=== PATIENT | female | born 1965 | race Caucasian/White ===

== ENCOUNTER 2018-02-11 00:26 | Inpatient (IN) | payer OTHER ==
[~2018-02-11] VITALS: Ht 157.5 cm; Wt 117.9 kg
[2018-02-11] VITALS (15 sets, daily range): BP systolic 99–133; BP diastolic 53–86
[~2018-02-11 00:26] MED LIST: ACETAMINOPHEN650 M5 PO; AMBIEN CR12.5 MG PO; AMOXICILLIN 50500 MG PO; AUGMENTIN 875875 MG PO; BISACODYL PO; BISACODYL SUPP10 MG PO; CARISOPRODOL 3350 MG PO; CELEXA 20 MG TA20 MG PO; DOK100 MG PO; DYAZIDE 37.5-21 EACH PO; ESTROVEN ENERG1 EACH PO; HYDROCHLOROTHIA25 M1 PO; HYDROCODONE-APA1 TA1 PO; LEVOTHROID25 MCG PO; LEVOTHYROXIN0.075 MG PO; LISINOPRIL40 MG PO; LOPRESSOR25 PO; MEDROL DOSPAK21 TAB PO; MELATONIN PO; MILK OF MA2400 MG/10 PO; MYLANTA PO; NORCO 10-325 T1 EACH PO; NORCO 5-325 TA1 EACH PO; OXYCODONE HCL15 MG PO; PERCOCET 5-3251 EACH PO; PERCOCET PO; PRINIVIL20 MG PO; PROTONIX40 M1 PO; PROZAC 20 MG20 MG PO; RELAFEN500 MG PO; TOPAMAX100 MG; ULTRAM 50MG TAB50 MG PO
[2018-02-11] MEDS ORDERED: NEURONTIN 300300 M1 PO (00:41)
[2018-02-11] MEDS ORDERED: HAIR, SKIN AND1 EAC1 PO (00:41)
[2018-02-11] MEDS ORDERED: VITAMIN C1000 MG PO (00:42)
[2018-02-11] MEDS ORDERED: ZINC50 M1 PO (00:42)
[2018-02-11] MEDS ORDERED: DICLOFENAC SODI75 MG PO (00:42)
[2018-02-11 01:01] LABS: BE -2.5 mmol/L (-2 to +3); HCO3 22.7 mmol/L (22.0-26.0); PCO2 40.8 mmHg (35.0-45.0); PO2 74.5 mmHg (75.0-100.0); pH 7.363 (7.340-7.450)
[2018-02-11 01:07] LABS: ABSOLUTE BASOPHILS 0.1 thou/uL (0.0-0.2); ABSOLUTE EOSINOPHILS 0.1 thou/uL (0.0-0.7); ABSOLUTE MONOCYTES 0.7 thou/uL (0.0-1.2); EOSINOPHILS 1.6 %; HEMATOCRIT 43.6 % (37.0-47.0); HEMOGLOBIN 14.9 gm/dL (12.0-15.0); MCH 31.1 pg (26.0-34.0); MCHC 34.2 g/dL (28.0-37.0); MCV 90.9 fL (80.0-100.0); MONOCYTES 7.4 %; MPV 9.4 fl. (7.2-11.1); NUCLEATED RBCS 0 /100WBC; PLATELET COUNT* 287 thou/uL (150-400); RBC 4.79 mil/uL (4.20-5.00); RDW-CV 13.6 % (10.5-14.5); WBC 8.9 thou/uL (4.0-11.0)
[2018-02-11 01:15] LABS: ANION GAP 11 mmol/L (7-16); BUN 18 mg/dL (7-18); CALCIUM 8.2 mg/dL (8.5-10.1); CHLORIDE 106 mmol/L (98-107); CO2 25 mmol/L (21-32); CREATININE 0.9 mg/dL (0.6-1.3); GLUCOSE 128 mg/dL (70-99); POTASSIUM 3.9 mmol/L (3.5-5.1); SODIUM 142 mmol/L (136-145)
[2018-02-11 01:20] LABS: URINE BILIRUBIN NEGATIVE (Negative); URINE BLOOD TRACE (Negative); URINE CLARITY CLEAR; URINE COLOR YELLOW; URINE GLUCOSE-RANDOM NEGATIVE (Negative); URINE KETONES TRACE (Negative); URINE LEUKOCYTES-REFLEX NEGATIVE (Negative); URINE NITRITE-REFLEX NEGATIVE (Negative); URINE PROTEIN NEGATIVE (Negative); URINE UROBILINOGEN 0.2 E.U./dl (0.2-1.0)
[2018-02-11 01:20] LABS: ALCOHOL 89 mg/dL (<10); SALICYLATE 3.7 mg/dL (2.8-20.0)
[2018-02-11 01:21] LABS: ACETAMINOPHEN < 2 ug/mL (10-30)
[2018-02-11 01:22] LABS: ALBUMIN 3.6 g/dL (3.4-5.0); ALKALINE PHOSPHATASE 96 U/L (46-116); SGOT 17 U/L (15-37); SGPT 35 U/L (30-65); TOTAL BILIRUBIN 0.2 mg/dL (<0.1-1.0); TOTAL PROTEIN 7.6 g/dL (6.4-8.2); TROPONIN-I LEVEL <0.06 ng/mL (<0.06)
[2018-02-11 01:28] LABS: AMP/METHAMP Negative (Negative); BARBITURATES Negative (Negative); BENZODIAZEPINES Negative (Negative); COCAINE Negative (Negative); METHADONE Negative (Negative); OPIATES Negative (Negative); PCP Negative (Negative); THC Negative (Negative)
--- NOTE | 2018-02-11 04:03 | NUR ---
PT ADMITTED TO ICU ROOM #3 AT 0310. PT DROWSEY AND LETHARGIC, OPENS EYES TO VOICE, FOLLOWS COMMANDS. PT ANSWERS QUESTIONS APROPRIATELY. ONE TO ONE SITTER AT BEDSIDE FOR SUICIDE PRECAUTIONS.
--- NOTE | 2018-02-11 06:35 | NUR ---
PT EXTREMELY RESTLESS DURING SHIFT. PT REPORTED CATHETER WAS HURTING ON SEVERAL OCCASIONS. CASEY CATHETER DISCONTINUED AT 0600. PT UP TO BEDSIDE COMMODE WITH ASSIST X1. PT STILL SLIGHTLY RESTLESS. SALINE LOCK IN LEFT HAND DISLODGED. RESTARTED 20 GUAGE SALINE LOCK IN LEFT ANTICUBITAL. PT VISUALLY HALLUCINATING, SEEING PERSONS NOT PRESENT. ONE TO ONE MAINTAINED FOR SUICIDE PRECAUTIONS. PT MAINTAINING O2 SAT > 94% ON ROOM AIR. HEART RATE 90 - 100. BLOOD PRESSURE WITHIN NORMAL LIMITS, WILL CONTINUE TO MONITOR CLOSELY.
--- NOTE | 2018-02-11 08:30 | NUR ---
RECEIVED REPORT FROM SLITTING MACHINE OPERATOR HELPER NURSE ANH Boateng PATIENT ANSWERS ALL ORIENTATION QUESTIONS APPROPRIATELY BUT IS VERY LETHARGIC AND DROWSY. ASSESSMENT CHARTED. PATIENT GRANDSON AT BEDSIDE AND DAUGHTER VISTED THIS AM. ALL VITALS WNL. PATIENT REPORTS NO PAIN, NAUSEA OR SHORTNESS OF AIR. GOALS ARE SAFTEY, REORIENTATION WHEN NEEDED, AND MONITOR CARDIAC RHYTHM AND VITALS IN ICU FOR 24 HOURS. MEDICATION RECONCILIATION TECHNICIAN IN PLACE, BED IN LOWEST POSITION, CALL LIGHT IN REACH, FALL PREACUTIONS IN PLACE, SITTER AT BEDSIDE. WILL CONTINUE TO MONITOR.
--- NOTE | 2018-02-11 13:41 | EKG ---
[place] [address] ELECTROCARDIOGRAM REPORT Name: KYA MARTINEZ Room: [address] IN ..#: [id number] Admission: 02/11/18 Attend Phys: Inez Torres MD Discharge: Date of : 65 Report #: [id number] THIS REPORT FOR: //name// [facility] ED Test Date: 2018-02-11 Test Time: 00:37:27 Pat Name: KYA MARTINEZ Department: Room: Gender: F Engraver Ornamental Design: ABRAN Bright : 1965 Requested By: Luis Alberto Kumar Order Number: [id number] MD: Deonte Servin Measurements Intervals [place] Rate: 98 P: 63 GA: 154 QRS: 97 QRSD: 99 T: 30 QT: 357 QTc: 456 Interpretive Statements Sinus rhythm Borderline right axis deviation Low voltage, precordial leads Electronically Signed On 02-11-2018 13:41:04 CDT by Deonte Servin [email or web address] <ELECTRONICALLY SIGNED> By: Deonte Servin MD, [facility] 02/11/18 1341 0037 0037 Deonte Servin MD, FACC /EPI
--- NOTE | 2018-02-11 18:41 | NUR ---
PATIENT HAS HAD MANY VISITORS TODAY. TEARFUL AT TIMES, SHE KNOWS WHAT SHE DID BUT DOES NOT SHOW REMORSE FOR IT. HAS HAD A CRYING EPISODE TODAY BECAUSE SHE THOUGHT HER DOGS WERENT BEING TAKEN CARE OF. DAUGHTER TOOK BELONGINGS HOME AND REASSURED PATIENT THAT SHE WOULD TAKE CARE OF HER DOG. PATIENT IS MUCH MORE AWAKE THIS EVENING, TELE PSYCH CONSULT SHOULD BE DONE TOMORROW. BED IN LOWEST POSITION, CALL LIGHT IN REACH, TONGUE TRIMMER IN PLACE. WILL CONTINUE TO MONITOR.
[2018-02-12] VITALS (7 sets, daily range): BP systolic 121–152; BP diastolic 67–89
--- NOTE | 2018-02-12 03:38 | NUR ---
PT. C/O "HEART HURTING". EKG OBTAINED, UNREMARKABLE.
[2018-02-12 04:05] LABS: HEMATOCRIT 40.1 % (37.0-47.0); HEMOGLOBIN 13.5 gm/dL (12.0-15.0); MCH 30.7 pg (26.0-34.0); MCHC 33.6 g/dL (28.0-37.0); MCV 91.4 fL (80.0-100.0); MPV 9.3 fl. (7.2-11.1); RBC 4.38 mil/uL (4.20-5.00); RDW-CV 13.4 % (10.5-14.5); WBC 8.5 thou/uL (4.0-11.0)
[2018-02-12 04:22] LABS: CALCIUM 8.2 mg/dL (8.5-10.1); CREATININE 0.9 mg/dL (0.6-1.3); POTASSIUM 3.8 mmol/L (3.5-5.1)
--- NOTE | 2018-02-12 05:08 | NUR ---
PT. PROGRESSING TOWARDS GOALS. HAS C/O PAIN THROUGHOUT SHIFT, IBUPROFEN AND TYLENOL GIVEN PER PRN ORDER. PT. HAS FREQUENTLY ASKED WHEN SHE COULD GO HOME. SITTER HAS REMAINED AT BEDSIDE THROUGHOUT SHIFT. ROOM AIR. HAS SLEPT WELL THROUGHOUT SHIFT. WILL CONTINUE TO MONITOR.
--- NOTE | 2018-02-12 11:20 | NUR ---
Nutrition: Consult received for "weight change." Per [employer], pt usually weighs around 260# x several years. Per ICU rounds, pt is eating well, wants to go home. BG 106, albumin 3.6. Admitted for SI, ETOH, OD. No nutrition interventions needed at this time.
--- NOTE | 2018-02-12 11:37 | NUR ---
CM SPOKE TO THE PATIENT TO DISCUSS HOME SITUATION, DISCHARGE PLANNING, AND TO INFORM OF THE ROLE OF CM. PATIENT ALERT AND ORIENTED. PATIENT WORKS AND DRIVES. PATIENT RESIDES AT HOME ALONE AND WAS RECENTLY . PATIENT INFORMS THAT PRIOR TO HER ADMISSION SHE WAS 'DRINKING WINE AND FEELING VERY ALONE', SO SHE 'TOOK A HANDFUL OF PILLS'. PATIENT STATES THAT SHE DOESN'T REMEMBER ANYTHING AFTER THAT. PATIENT ALSO INFORMS THAT SHE HAS NO HX OF INPATIENT PSYCH. CM WILL REMAIN AVAILABLE TO ASSIST AND FOLLOW NEEDED.
--- NOTE | 2018-02-12 11:41 | NUR ---
ICU ROUNDING: CM SPOKE TO THE RN IN-CHARGE OF THE PATIENT AND SHE INFORMS THAT PATIENT IS NOW MED-SURG STATUS AND SHOULD BE MOVING OFF THE ICU UNIT TODAY. PATIENT TO BE SEEN BY TELE PSYCH TODAY. CM WILL REMAIN AVAILABLE TO ASSIST AND FOLLOW NEEDED.
--- NOTE | 2018-02-12 11:58 | EKG ---
[place] [address] ELECTROCARDIOGRAM REPORT Name: KYA MARTINEZ Room: [address] ADM IN M.R.#: [id number] Admission: 02/11/18 Attend Phys: Inez Torres MD Discharge: Date of : 65 Report #: [id number] THIS REPORT FOR: //name// [facility] Test Date: 2018-02-12 Test Time: 03:29:47 Pat Name: KYA MARTINEZ Department: Room: [address] Gender: F Screw Cutter: FANNY : 1965 Requested By: Inez Torres Order Number: [id number] Reading MD: Deonte Servin Measurements Intervals [place] Rate: 70 P: 19 NM: 209 QRS: 83 QRSD: 98 T: 34 QT: 408 QTc: 441 Interpretive Statements Sinus rhythm Borderline prolonged NM interval Anterior infarct, old Compared to ECG 02/11/2018 00:37:27 Myocardial infarct finding now present rate has slowed Electronically Signed On 02-12-2018 11:58:31 CDT by Deonte Servin [email or web address] <ELECTRONICALLY SIGNED> By: Deonte Servin MD, [facility] 02/12/18 1158 0329 0329 Deonte Servin MD, [facility] /EPI
--- NOTE | 2018-02-12 11:59 | NUR ---
ASSUMED PT CARE 0730. PT A/O X'4. TRACING SR. VSS. AFEBRILE. TELE [facility] PHYSICIAN CALLED AND SPOKE TO PT. PT CHANGED TO M/S STATUS. WILL CONTINUE PLAN OF CARE.
--- NOTE | 2018-02-12 16:52 | NUR ---
RECEIVED PSYCHIATRIST NOTES VIA FAXED. PLACED IN CHART UNDER PROGRESS NOTES.
--- NOTE | 2018-02-12 16:53 | NUR ---
ABOUT 1600 PT C/O OF CHEST PAIN 04/06. RADIATING TO BOTH ARMS. PT DESCRIBED PAIN SHARP AND BURNING. PT REPORTED ARMS FELT HEAVY. TRACING SR WITH HR IN 70'S. PT 95% ON 10 L NC. VSS AND CHARTED. EKG OBTAINED. NOTIFIED. RECEIVED ORDER FOR 1 TROPONIN. RETAIL STORE CLERK CAME TO SEE PT. NO ADDITIONAL ORDERS RECIEVED. PER CARDIOLOGY WATCH SYMPTOMS.
--- NOTE | 2018-02-12 19:30 | NUR ---
PATIENT ARRIVED TO UNIT BY WHEELCHAIR IN TRANSFER FRON ICU TO BED 115 IN STABLE CONDITION. ROOM PREPARED PER PROTOCOL FOR SI PATIENT PRIOR TO ARRIVAL. MOTHER OF PATIENT PRESENT FOR VISIT. MOTHERS BELONGINGS IN LOCK DRAWER PER PRTOCOL. PATIENT ALERT AND ORIENTED X 4, PLEASANT AND CONVERSATIONAL. SITTER WITH PATIENT. CONTINUE TO MONITOR.
--- NOTE | 2018-02-13 04:43 | NUR ---
PATIENT HAS REMAINED ALERT AND ORIENTED X 4 THROUGHOUT THE SHIFT AND RESTING AT INTERVALS ON HOURLY ROUNDS. UP WITH SBA. 1:1 CONTINUES. PATIENT HAS BEEN PLEASANT. READING A BOOK. TEARY WHEN FIRST ARRIVED AND DISCUSSING SITUATION. VITAL SIGNS STABLE. CONTINUE TO MONITOR.
[2018-02-13 08:45] VITALS: BP 129/82
--- NOTE | 2018-02-13 10:23 | NUR ---
SW received order for pt to dc to inpt psych. SW called referral options: [facility] [phone]...no adult beds available [facility] [phone]...full [facility] pager [phone]...awaiting response [facility] [phone] and faxed referral to fax [phone]...pending review [facility] [phone]...at limit, unable to accept today [facility] [phone] and faxed referral to fax [phone]...referral being reviewed. SW awaiting response from referral sources and SW will continue to follow to assist with dc planning/placement.
[2018-02-13 15:00] VITALS: BP 113/70
--- NOTE | 2018-02-13 16:45 | NUR ---
PATIENT ALERT AND ORIENTED X 4. VITAL SIGNS STABLE ON ROOM AIR. UP AD IMAN IN ROOM. ONE TO ONE SITTER AT BEDSIDE. NO IV ACCESS. DENIES NAUSEA. MIGRAINE PAIN BEING MANAGED WITH PO MEDICATION. PATIENT IS BEING TRANSFERRED TO FACILITY THIS EVENING. HOURLY ROUNDS MAINTAINED THROUGHOUT THE SHIFT. CALL LIGHT WITHIN REACH. NURSING WILL CONTINUE TO MONITOR.
[2018-02-13 16:47] VITALS: BP 129/82
[2018-02-13 17:16] VITALS: BP 121/77
--- NOTE | 2018-02-13 17:47 | NUR ---
PATIENT LEFT UNIT AND TRANSFERRED TO FACILITY AT 1745. ALERT AND ORIENTED X 4. VITAL SIGNS STABLE ON ROOM AIR. UP INDEPENDENTLY. ONE TO ONE SITTER HAS BEEN AT BEDSIDE ALL DAY. NO IV ACCESS. TRANSFER PACKET GIVEN TO EMS. LEFT WITH ALL BELONGINGS WITH EMS VIA AMBULANCE.
== END 2018-02-13 17:45 | DRG 917 ==
LOC: M.ERS 00:26 → M.TBA-ER 01:52 → M.ICU 01:52 → M.ORTHSURG 02-12 19:06
PROVIDERS: Emergency Medicine; Internal Medicine; ADMIT Internal Medicine
DX: T42.6X2A Poisoning by other antiepileptic and sedative-hypnotic drugs, intentional self-harm, initial encounter (principal); G92 Toxic encephalopathy; I10 Essential (primary) hypertension; E78.5 Hyperlipidemia, unspecified; F17.210 Nicotine dependence, cigarettes, uncomplicated; G43.909 Migraine, unspecified, not intractable, without status migrainosus; F32.9 Major depressive disorder, single episode, unspecified; E03.9 Hypothyroidism, unspecified; Y92.098 Other place in other non-institutional residence as the place of occurrence of the external cause; Z88.2 Allergy status to sulfonamides; Z98.890 Other specified postprocedural states; Z79.899 Other long term (current) drug therapy

== ENCOUNTER 2021-01-26 20:48 | Observation (INO) | payer OTHER ==
[~2021-01-26] VITALS: Ht 160 cm; Wt 123.0 kg
[~2021-01-26 20:48] MED LIST changes: +DICLOFENAC SODI75 MG PO; -DYAZIDE 37.5-21 EACH PO; +HAIR, SKIN AND1 EAC1 PO; -LEVOTHYROXIN0.075 MG PO; +MAXZIDE-25 MG1 EACH PO; +NEURONTIN 300300 M1 PO; +SYNTHROID75 MC1 PO; +VITAMIN C1000 MG PO; +ZINC50 M1 PO
[2021-01-26 20:57] VITALS: BP 135/80
[2021-01-26] MEDS ORDERED: ELIQUIS5 MG PO (21:02)
[2021-01-26] MEDS ORDERED: TOPROL XL25 MG PO (21:03)
[2021-01-26 21:16] LABS: ABSOLUTE BASOPHILS 0.1 thou/uL (0.0-0.2); ABSOLUTE EOSINOPHILS 0.1 thou/uL (0.0-0.7); ABSOLUTE LYMPHOCYTES 3.5 thou/uL (0.8-5.3); ABSOLUTE MONOCYTES 1.1 thou/uL (0.0-1.2); ABSOLUTE NEUTROPHILS 5.1 thou/uL (1.6-8.1); EOSINOPHILS 1.5 %; HEMATOCRIT 44.3 % (37.0-47.0); HEMOGLOBIN 14.9 gm/dL (12.0-15.0); LYMPHOCYTES 35.5 %; MCH 30.2 pg (26.0-34.0); MCHC 33.5 g/dL (28.0-37.0); MCV 90.1 fL (80.0-100.0); MONOCYTES 10.7 %; MPV 8.6 fl. (7.2-11.1); NUCLEATED RBCS 0 /100WBC; PLATELET COUNT* 282 thou/uL (150-400); POLYS 51.3 %; RBC 4.92 mil/uL (4.20-5.00); RDW-CV 13.9 % (10.5-14.5); WBC 9.9 thou/uL (4.0-11.0)
[2021-01-26 21:32] LABS: CALCIUM 8.8 mg/dL (8.5-10.1); POTASSIUM 3.9 mmol/L (3.5-5.1)
[2021-01-26 21:35] LABS: APTT 23.9 Seconds (25.0-31.3); PROTIME 10.6 Seconds (9.20-11.50)
[2021-01-26 21:43] LABS: ALBUMIN 3.5 g/dL (3.4-5.0); TOTAL BILIRUBIN 0.3 mg/dL (<0.1-1.0); TOTAL PROTEIN 7.6 g/dL (6.4-8.2)
[2021-01-27] VITALS (7 sets, daily range): BP systolic 97–110; BP diastolic 62–82
--- NOTE | 2021-01-27 04:55 | NUR ---
RECIEVED REPORT FROM THELMA THAO. PT TRANSFERRED TO 225. PT A&OX4. VSS. AUTO MOTOR MECHANIC IN PLACE. ADMISSION HISTORY & PHYSICAL ASSESSMENT COMPLETED AND CHARTED. PT ON RA. PT TRACING AFIB ON TELE-ONGOING CARDIZEM DRIP. ORIENTED TO ROOM & CALL LIGHT.
--- NOTE | 2021-01-27 09:51 | EKG ---
[place] [address] ELECTROCARDIOGRAM REPORT Name: KYA MARTINEZ Room: [address]#: [id number] Admission: 01/27/21 Attend Phys: Jake Abel Discharge: Date of : 65 Date of Service: 01/26/212053 Report #: [id number] THIS REPORT FOR: //name// [facility] ED Test Date: 2021-01-26 Test Time: 20:54:46 Pat Name: KYA MARTINEZ Department: Room: [facility] Gender: F Candlemaker: EDWAR : 1965 Requested By: Lelo Lisa Order Number: [id number] MD: Enrike Rodriguez Measurements Intervals [place] Rate: 127 P: [place]: QRS: 111 QRSD: 96 T: 21 QT: 328 QTc: 477 Interpretive Statements Atrial fibrillation Right axis deviation Low voltage, extremity and precordial leads Abnormal R-wave progression, late transition Minimal ST depression, inferior leads Compared to ECG 02/12/2018 03:29:47 Right-axis deviation now present Low QRS voltage now present ST (T wave) deviation now present Sinus rhythm no longer present Myocardial infarct finding no longer present Electronically Signed On 01-27-2021 9:51:10 CDT by Enrike Rodriguez [email or web address] <ELECTRONICALLY SIGNED> By: Tracey Rodriguez MD, [facility] 01/27/21950 53 53 Tracey Rodriguez MD, [facility] /EPI
--- NOTE | 2021-01-27 10:08 | NUR ---
0150 ASSUMED CARE OF PATIENT. PLEASE SEE DOCUMENTED ASSESSMENT. PT IS IN CONTROLLED ATRIAL FIB. PT IS CONCERNED BECAUSE SHE IS OUT OF NETWORK.
[2021-01-27] MEDS ORDERED: CARDIZEM CD120 MG PO (10:57)
--- NOTE | 2021-01-27 13:49 | NUR ---
1310 DISCHARGED AMBULATORY
== END 2021-01-27 13:15 | disposition home or self-care (01) ==
LOC: M.ERS 20:48 → M.2W 01-27 00:15 → M.TBA-ER 01-27 00:15 → M.2W 01-27 00:29
PROVIDERS: Personal Emergency Response Attendant; ADMIT Internal Medicine; ATTEND Internal Medicine
DX: I48.20 Chronic atrial fibrillation, unspecified (principal); Z20.822 Contact with and (suspected) exposure to COVID-19; E66.01 Morbid (severe) obesity due to excess calories; I10 Essential (primary) hypertension; E03.9 Hypothyroidism, unspecified; G43.909 Migraine, unspecified, not intractable, without status migrainosus; F32.9 Major depressive disorder, single episode, unspecified; L40.9 Psoriasis, unspecified; F17.210 Nicotine dependence, cigarettes, uncomplicated; Z88.2 Allergy status to sulfonamides; Z79.899 Other long term (current) drug therapy; Z68.42 Body mass index [BMI] 45.0-49.9, adult

== ENCOUNTER 2021-03-14 14:49 | Inpatient (IN) | payer OTHER ==
[~2021-03-14] VITALS: Ht 160 cm; Wt 127.6 kg
[~2021-03-14 14:49] MED LIST changes: +CARDIZEM CD120 MG PO; +ELIQUIS5 MG PO; +TOPROL XL25 MG PO
[2021-03-14 15:02] VITALS: BP 114/79
[2021-03-14] MEDS ORDERED: DESYREL150 MG PO (15:07)
[2021-03-14] MEDS ORDERED: LOPRESSOR50 MG PO (15:07)
[2021-03-14 15:37] LABS: ABSOLUTE BASOPHILS 0.1 thou/uL (0.0-0.2); ABSOLUTE EOSINOPHILS 0.1 thou/uL (0.0-0.7); ABSOLUTE LYMPHOCYTES 2.3 thou/uL (0.8-5.3); ABSOLUTE MONOCYTES 0.7 thou/uL (0.0-1.2); ABSOLUTE NEUTROPHILS 7.1 thou/uL (1.6-8.1); BASOPHILS 0.8 %; EOSINOPHILS 0.8 %; HEMATOCRIT 44.5 % (37.0-47.0); LYMPHOCYTES 22.6 %; MCH 30.5 pg (26.0-34.0); MCHC 33.7 g/dL (28.0-37.0); MCV 90.5 fL (80.0-100.0); MONOCYTES 6.4 %; MPV 9.1 fl. (7.2-11.1); NUCLEATED RBCS 0 /100WBC; PLATELET COUNT* 292 thou/uL (150-400); POLYS 69.4 %; RBC 4.92 mil/uL (4.20-5.00); RDW-CV 13.9 % (10.5-14.5); WBC 10.3 thou/uL (4.0-11.0)
[2021-03-14 15:50] LABS: ANION GAP 6 mmol/L (7-16); BUN 16 mg/dL (7-18); CALCIUM 8.4 mg/dL (8.5-10.1); CHLORIDE 107 mmol/L (98-107); CO2 30 mmol/L (21-32); CREATININE 0.9 mg/dL (0.6-1.3); GLUCOSE 118 mg/dL (70-99); SODIUM 143 mmol/L (136-145)
[2021-03-14 15:53] LABS: ALBUMIN 3.5 g/dL (3.4-5.0); ALKALINE PHOSPHATASE < 10 U/L (46-116); SGOT 9 U/L (15-37); SGPT 16 U/L (30-65); TOTAL BILIRUBIN < 0.1 mg/dL (<0.1-1.0)
[2021-03-14 15:56] LABS: TOTAL PROTEIN < 2.0 g/dL (6.4-8.2)
[2021-03-14 16:23] LABS: MAGNESIUM 2.1 mg/dL (1.8-2.4)
[2021-03-14 19:55] VITALS: BP 127/77
[2021-03-14 20:00] VITALS: BP 128/77
[2021-03-15] VITALS (14 sets, daily range): BP systolic 90–122; BP diastolic 50–70
[2021-03-15 05:53] LABS: HEMATOCRIT 39.3 % (37.0-47.0); HEMOGLOBIN 13.2 gm/dL (12.0-15.0); MCH 30.4 pg (26.0-34.0); MCHC 33.5 g/dL (28.0-37.0); MCV 90.7 fL (80.0-100.0); MPV 9.3 fl. (7.2-11.1); RBC 4.33 mil/uL (4.20-5.00); RDW-CV 13.8 % (10.5-14.5); WBC 8.6 thou/uL (4.0-11.0)
[2021-03-15 06:00] LABS: CALCIUM 8.1 mg/dL (8.5-10.1); CREATININE 0.8 mg/dL (0.6-1.3); POTASSIUM 3.7 mmol/L (3.5-5.1)
--- NOTE | 2021-03-15 11:58 | EKG ---
[place] [address] ELECTROCARDIOGRAM REPORT Name: KYA MARTINEZ Room: [address] ADM IN ..#: [id number] Admission: 03/15/21 Attend Phys: Inez Torres, Discharge: Date of : 65 Date of Service: 03/14/21 [facility] [place][note 2] Report #: [id number] THIS REPORT FOR: //name// [facility] ED Test Date: 2021-03-14 Test Time: 15:00:54 Pat Name: KYA MARTINEZ Department: Room: [facility] Gender: F Habilitation Worker: TDS : 1965 Requested By: Iveth Hassan Order Number: [id number] MD: Deonte Servin Measurements Intervals [place] Rate: 94 P: DC: QRS: 78 QRSD: 110 T: 38 QT: 338 QTc: 423 Interpretive Statements Atrial fibrillation Anteroseptal infarct, age indeterminate Compared to ECG 01/26/2021 20:54:46 Right-axis deviation no longer present ST (T wave) deviation no longer present Electronically Signed On 03-15-2021 11:58:42 CDT by Deonte Servin [email or web address] <ELECTRONICALLY SIGNED> By: Deonte Servin MD, [facility] 03/15/21 1158 1500 1500 Deonte Servin MD, [facility] /EPI
--- NOTE | 2021-03-15 14:47 | EKG ---
[place] [address] ELECTROCARDIOGRAM REPORT Name: KYA MARTINEZ Room: [address] ADM IN M.R.#: [id number] Admission: 03/15/21 Attend Phys: Inez Torres, Discharge: Date of : 65 Date of Service: 03/15/21 0336 Report #: [id number] THIS REPORT FOR: //name// [facility] Test Date: 2021-03-15 Test Time: 03:36:20 Pat Name: KYA MARTINEZ Department: Room: [address] Gender: F Production Service Manager: ADONIS : 1965 Requested By: Inez Torres Order Number: [id number] Reading MD: Deonte Servin Measurements Intervals [place] Rate: 99 P: [place]: QRS: 83 QRSD: 87 T: 32 QT: 357 QTc: 459 Interpretive Statements Atrial fibrillation Low voltage, extremity and precordial leads Consider anterior infarct Compared to ECG 03/14/2021 15:00:54 Myocardial infarct finding still present Electronically Signed On 03-15-2021 14:47:18 CDT by Deonte Servin [email or web address] <ELECTRONICALLY SIGNED> By: Deonte Servin MD, [facility] 03/15/21 1447 0336 0336 Deonte Servin MD, [facility] /EPI
--- NOTE | 2021-03-15 16:39 | CON ---
[address] [address] CONSULTATION Name: KYA MARTINEZ Gary Room: [address] IN M.R.#: [id number] Admission: 03/15/21 Attend Phys: Inez Torres MD Discharge: Date of : 65 Report #: [id number] THIS REPORT FOR: cc: Varsha Maurer MD, Veronica A. MD Blick, David R. MD [facility] ~ DOC #: [id number] cc: MD Deonte Fraga MD [facility] DATE OF CONSULTATION: 03/15/2021 CARDIOLOGY CONSULTATION HISTORY OF PRESENT ILLNESS: The patient is a 55-year-old single white female who I was asked to see in the hospital after she is noted to be in atrial fibrillation. The patient states in August, she was diagnosed with COVID-19. She eventually recovered. However, in November, she was admitted to [facility] with atrial fibrillation. She was placed on Eliquis and metoprolol. She apparently did see a commercial loan analyst. She did not require cardioversion. She was scheduled to undergo bariatric surgery as part of preoperative evaluation. She apparently had a stress test at [facility] several weeks ago that showed no significant ischemia. The patient was actually admitted here to [facility] with atrial fibrillation. She converted spontaneously back to sinus rhythm. She was started on diltiazem and discharged. She did well until 3 days ago she went back into the irregular heartbeat. She felt fatigued and somewhat short of breath. She finally came to the emergency room here at [facility] last night and was noted to be in atrial fibrillation. Cardiology consultation requested. She denied any chest pain, fever, swollen feet. She denied any lightheadedness or syncope. She has had no recent bleeding problems. She did run out of her diltiazem 3 days ago. CURRENT MEDICATIONS: Include metoprolol, Eliquis, lisinopril, Synthroid, trazodone, Celexa. PAST SURGICAL HISTORY: She has had previous cholecystectomy, hernia repair, hypertension. ALLERGIES: SHE HAS AN ALLERGY TO SULFA DRUGS. FAMILY HISTORY: Father of a heart attack. SOCIAL HISTORY: She is , lives in [place], [place]. 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 Quit smoking 2 years ago. Rarely drinks alcohol. She used to drink up to 6 pack of soda a day with caffeine, but now drinks only 1 [place] [address] CONSULTATION Name: KYA MARTINEZ Room: [address]#: [id number] Admission: 03/15/21 Attend Phys: Inez Torres MD Discharge: Date of : 65 Report #: [id number] 2 a day. No illicit drug use. REVIEW OF SYSTEMS: She is overweight being 5 feet 2 and 260 pounds. She apparently had a sleep study in the past, does not know the results. No history of stroke, asthma, liver disease, kidney disease, cancer, psychiatric illness, chronic skin condition. PHYSICAL EXAMINATION: GENERAL: Revealed a middle-aged female, appeared in no distress. VITAL SIGNS: Blood pressure 120/70, pulse is 80 and irregular. She was afebrile. HEENT: She was anicteric. Conjunctivae pink. Mucous membranes moist. NECK: Neck veins difficult to assess due to obesity. No carotid bruits noted. Neck supple. CHEST: Clear to auscultation. HEART: Irregular rhythm. No significant murmur. ABDOMEN: Obese. EXTREMITIES: No pitting edema. Dorsalis pedis pulse 2+ bilaterally. SKIN: Cool and dry. NEUROLOGIC: Nonfocal. LYMPHATIC: No adenopathy. MUSCULOSKELETAL: No joint effusion. LABORATORY DATA: Her ECG on admission yesterday showed atrial fibrillation with a controlled ventricular response rate. There is poor R-wave progression. Her workup in the emergency room last night, she had a portable chest x-ray that showed normal heart size with clear lung reyes. Her lab work, sodium 143, creatinine 0.8. Her BNP was 2391. TSH 1.2. T4 of 0.8. Her white blood cell count 8.6, hemoglobin 13.2. Her COVID antigen stat test was negative. IMPRESSION AND RECOMMENDATIONS: 1. Paroxysmal atrial fibrillation. The patient is anticoagulated with Eliquis. I would recommend cardioversion and switching from metoprolol to sotalol. 2. Hypertension. The patient has been on beta nina and ACACIA inhibitor. 3. Morbid obesity. The patient is scheduled for bariatric surgery on April 04. 4. Previous tobacco abuse. The patient quit smoking 2 years ago. Deonte Servin MD [facility] [address] [address] CONSULTATION Name: KYA MARTINEZ Room: [address] [facility] IN [place].Subha.#: [id number] Admission: 03/15/21 Attend Phys: Inez Torres MD Discharge: Date of : 65 Report #: [id number] <ELECTRONICALLY SIGNED> By: Deonte Servin MD, [facility] 03/15/21 1639 0740 [id number] Servin MD, FAC /nt
[2021-03-16] VITALS: BP 100/52
[2021-03-16 03:39] LABS: HEMATOCRIT 37.1 % (37.0-47.0); HEMOGLOBIN 12.3 gm/dL (12.0-15.0); MCH 30.3 pg (26.0-34.0); MCHC 33.2 g/dL (28.0-37.0); MCV 91.4 fL (80.0-100.0); MPV 9.2 fl. (7.2-11.1); RBC 4.06 mil/uL (4.20-5.00); RDW-CV 14.2 % (10.5-14.5); WBC 7.9 thou/uL (4.0-11.0)
[2021-03-16 03:44] VITALS: BP 108/64
[2021-03-16 03:53] LABS: CALCIUM 8.4 mg/dL (8.5-10.1); CREATININE 0.9 mg/dL (0.6-1.3); POTASSIUM 4.3 mmol/L (3.5-5.1)
[2021-03-16 08:00] VITALS: BP 106/64
[2021-03-16 13:43] VITALS: BP 114/66
[2021-03-16 16:37] VITALS: BP 106/51
[2021-03-16 20:00] VITALS: BP 120/60
[2021-03-17 00:25] VITALS: BP 118/46
[2021-03-17 04:10] VITALS: BP 106/57
[2021-03-17 04:10] LABS: HEMATOCRIT 35.7 % (37.0-47.0); MCH 30.3 pg (26.0-34.0); MCHC 33.7 g/dL (28.0-37.0); MCV 89.9 fL (80.0-100.0); MPV 9.3 fl. (7.2-11.1); RBC 3.97 mil/uL (4.20-5.00); RDW-CV 14.1 % (10.5-14.5)
[2021-03-17 04:21] LABS: CALCIUM 8.3 mg/dL (8.5-10.1); CREATININE 0.8 mg/dL (0.6-1.3); POTASSIUM 3.9 mmol/L (3.5-5.1)
[2021-03-17] MEDS ORDERED: SORINE 80 MG TA80 M1 PO (12:13)
[2021-03-17 12:50] VITALS: BP 106/57
[2021-03-17 13:00] VITALS: BP 111/76
--- NOTE | 2021-03-18 12:45 | CARD ---
[address] [address] CARDIAC CATH REPORT Name: KYA MARTINEZ Room: [address]#: [id number] Admission: 03/15/21 Attend Phys: Inez Torres MD Discharge: 03/17/21 Date of : 65 Report #: [id number] THIS REPORT FOR: cc: Varsha Maurer MD, Veronica A. MD Blick, David R. MD [facility] ~ DOC #: [id number] cc: MD Deonte Fraga MD [facility] DATE OF SERVICE: 03/14/2021 TITLE OF PROCEDURE: Direct current cardioversion of atrial fibrillation. INDICATIONS: Cardioversion was requested in this patient with a history of persistent atrial fibrillation. PROCEDURE: The patient had been taking Eliquis chronically. The patient presented with atrial fibrillation for approximately 72 hours duration. It was decided to proceed with direct current cardioversion. The indication, alternatives and risk of the procedure were discussed with the patient. She agreed to proceed. DESCRIPTION OF PROCEDURE: The patient was brought to the cardiac catheterization lab in a fasting state. Hands-free cardioversion patches were applied in anterior and posterior location. Moderate sedation was accomplished by administration of 5 mg of Versed and 50 mcg of fentanyl intravenously in divided doses. After achieving moderate sedation, cardioversion was attempted by applying 200 joules of direct current energy. The patient converted to a normal sinus rhythm. The patient tolerated the procedure well and was transferred back to her monitored bed in stable condition. RESULTS: Successful direct current cardioversion of atrial fibrillation to normal sinus rhythm. Deonte Servin MD [facility]/ALMA <ELECTRONICALLY SIGNED> By: Deonte Servin MD, [facility] 03/18/21 1245 1526 Dbrianna Servin MD, [facility] /nt
== END 2021-03-17 13:00 | disposition home or self-care (01) | DRG 309 ==
LOC: M.ERS 14:49 → M.TBA-ER 17:48 → M.2W 20:15
PROVIDERS: Family Medicine; Physician Assistant; ADMIT Internal Medicine; ATTEND Internal Medicine
PROC: 5A2204Z Restoration of Cardiac Rhythm, Single (ICD-10-PCS; principal; 2021-03-15)
DX: I48.20 Chronic atrial fibrillation, unspecified (principal); Z68.42 Body mass index [BMI] 45.0-49.9, adult; I10 Essential (primary) hypertension; E03.9 Hypothyroidism, unspecified; F32.9 Major depressive disorder, single episode, unspecified; I95.9 Hypotension, unspecified; G43.909 Migraine, unspecified, not intractable, without status migrainosus; E66.01 Morbid (severe) obesity due to excess calories; R07.9 Chest pain, unspecified; Z20.822 Contact with and (suspected) exposure to COVID-19; Z90.49 Acquired absence of other specified parts of digestive tract; Z88.2 Allergy status to sulfonamides; Z79.01 Long term (current) use of anticoagulants; Z79.899 Other long term (current) drug therapy; Z86.16 Personal history of COVID-19; Z87.891 Personal history of nicotine dependence

== ENCOUNTER 2021-03-22 08:25 | Observation (INO) | payer OTHER ==
[~2021-03-22] VITALS: Ht 160 cm; Wt 122.5 kg
[~2021-03-22 08:25] MED LIST changes: +DESYREL150 MG PO; +LOPRESSOR50 MG PO; +SORINE 80 MG TA80 M1 PO
[2021-03-22 08:35] VITALS: BP 147/54
[2021-03-22 08:54] LABS: ABSOLUTE BASOPHILS 0.1 thou/uL (0.0-0.2); ABSOLUTE EOSINOPHILS 0.1 thou/uL (0.0-0.7); ABSOLUTE LYMPHOCYTES 1.7 thou/uL (0.8-5.3); ABSOLUTE MONOCYTES 0.5 thou/uL (0.0-1.2); ABSOLUTE NEUTROPHILS 5.6 thou/uL (1.6-8.1); BASOPHILS 0.8 %; EOSINOPHILS 1.6 %; HEMATOCRIT 35.3 % (37.0-47.0); HEMOGLOBIN 12.1 gm/dL (12.0-15.0); LYMPHOCYTES 21.4 %; MCH 30.2 pg (26.0-34.0); MCHC 34.3 g/dL (28.0-37.0); MCV 88.3 fL (80.0-100.0); MONOCYTES 6.8 %; MPV 9.3 fl. (7.2-11.1); NUCLEATED RBCS 0 /100WBC; PLATELET COUNT* 250 thou/uL (150-400); POLYS 69.4 %; RDW-CV 13.4 % (10.5-14.5); WBC 8.1 thou/uL (4.0-11.0)
[2021-03-22 09:03] LABS: CALCIUM 8.4 mg/dL (8.5-10.1); CREATININE 0.9 mg/dL (0.6-1.3); POTASSIUM 4.1 mmol/L (3.5-5.1)
[2021-03-22 09:14] LABS: ALBUMIN 3.1 g/dL (3.4-5.0); MAGNESIUM 1.9 mg/dL (1.8-2.4); TOTAL BILIRUBIN 0.3 mg/dL (<0.1-1.0); TOTAL PROTEIN 7.1 g/dL (6.4-8.2)
[2021-03-22 10:18] LABS: URINE BLOOD NEGATIVE (Negative); URINE CLARITY CLEAR; URINE COLOR YELLOW; URINE GLUCOSE-RANDOM NEGATIVE (Negative); URINE KETONES NEGATIVE (Negative); URINE LEUKOCYTES NEGATIVE (Negative); URINE NITRITE NEGATIVE (Negative); URINE PROTEIN NEGATIVE (Negative); URINE SPECIFIC GRAVITY 1.025 (1.005-1.030); URINE UROBILINOGEN 0.2 E.U./dl (0.2-1.0)
[2021-03-22 10:20] LABS: ICTOTEST (BILI CONFIRMATORY) Negative (Negative); URINE BILIRUBIN 2+ (Negative)
[2021-03-22 13:05] VITALS: BP 135/72
[2021-03-22 13:10] VITALS: BP 137/62
--- NOTE | 2021-03-22 14:25 | 2DMMODE ---
[place] [address] 2 D/M-MODE ECHOCARDIOGRAM Name: KYA MARTINEZ Room: [address] Vito Palencia#: [id number] Admission: 03/22/21 Attend Phys: Jake Abel Discharge: Date of : 65 Date of Service: 03/22/21 1424 Report #: [id number] THIS REPORT FOR: cc: Varsha Maurer MD, Veronica A. MD Holkins,Harley Martinez MD [facility] ~ APPROVED REPORT Study performed: 03/22/2021 13:32:56 EXAM: Comprehensive 2D, Doppler, and color-flow Echocardiogram Patient Location: In-Patient Room #: [facility] Status: routine BSA: 2.20 HR: 62 bpm BP: 112/61 mmHg Rhythm: NSR Other Information Study Quality: Good Indications Dyspnea 2D Dimensions IVSd: 10.54 (7-11mm) LVOT Diam: 18.39 (18-24mm) LVDd: 63.32 mm PWd: 10.48 (7-11mm) LVDs: 33.99 (25-40mm) Aortic Root: 31.88 mm Volumes Left Atrial Volume (Systole) LA ESV Index: 26.30 mL/m2 Aortic Valve AoV Peak Morris.: 1.65 m/s AO Peak Gr.: 10.89 mmHg LVOT Max P.66 mmHg AO Mean Gr.: 6.65 mmHg LVOT Mean P.43 mmHg LVOT Max V: 1.38 m/s AO V2 VTI: 40.05 cm LVOT Mean V: 0.84 m/s YAMIL (VTI): 2.13 cm2 LVOT V1 VTI: 32.08 [place] [address] 2 D/M-MODE ECHOCARDIOGRAM Name: KYA MARTINEZ Room: [address] Vito MartinezRShahla#: [id number] Admission: 03/22/21 Attend Phys: Jake Abel Discharge: Date of : 65 Date of Service: 03/22/21 1424 Report #: [id number] Mitral Valve E/A Ratio: 1.13 MV Decel. Time: 217.05 ms MV E Max Morris.: 1.29 m/s MV PHT: 62.94 ms MVA (PHT): 3.50 cm2 TDI E/Lateral E': 14.33 E/Medial E': 12.90 Medial E' Morris.: 0.10 m/s Lateral E' Morris.: 0.09 m/s Pulmonary Valve PV Peak Morris.: 1.02 m/s PV Peak Gr.: 4.17 mmHg Tricuspid Valve RAP Estimate: 5.00 mmHg TR Peak Gr.: 32.63 mmHg RVSP: 37.00 mmHg PA Pressure: 37.00 mmHg Left Ventricle The left ventricle is normal size. There is normal LV segmental wall motion. There is normal left ventricular wall thickness. Left ventricular systolic function is normal. The left ventricular ejection fraction is within the normal range. LVEF is 55-60%. The left ventricular diastolic function is normal. Right Ventricle The right ventricle is normal size. The right ventricular systolic function is normal. Atria The left atrium size is normal. The right atrium size is normal. Aortic Valve The aortic valve is normal in structure. Trace aortic regurgitation. There is no aortic valvular stenosis. Mitral Valve The mitral valve is normal in structure. Trace mitral regurgitation. No evidence of mitral valve stenosis. Tricuspid Valve The tricuspid valve is normal in structure. Mild tricuspid regurgitation. [place] [address] 2 D/M-MODE ECHOCARDIOGRAM Name: KYA MARTINEZ [address] [id number] Admission: 03/22/21 Attend Phys: Jake Abel Discharge: Date of : 65 Date of Service: 03/22/21 1424 Report #: [id number] Pulmonic Valve The pulmonary valve is normal in structure. There is no pulmonic valvular regurgitation. Great Vessels The aortic root is normal in size. IVC is normal in size and collapses >50% with inspiration. Pericardium There is no pericardial effusion. <Conclusion> The left ventricle is normal size. There is normal left ventricular wall thickness. Left ventricular systolic function is normal. The left ventricular ejection fraction is within the normal range. LVEF is 55-60%. The left ventricular diastolic function is normal. The right ventricle is normal size. The left atrium size is normal. The aortic valve is normal in structure. Trace aortic regurgitation. There is no aortic valvular stenosis. The mitral valve is normal in structure. Trace mitral regurgitation. The tricuspid valve is normal in structure. Mild tricuspid regurgitation. Mild pulmonary hypertension. IVC is normal in size and collapses >50% with inspiration. There is no pericardial effusion. There is normal LV segmental wall motion. <ELECTRONICALLY SIGNED> By: Harley Knight MD, [facility] 03/22/21 1424 1424 1424 Harley Knight MD, [facility] /INF
--- NOTE | 2021-03-22 14:29 | EKG ---
[place] [address] ELECTROCARDIOGRAM REPORT Name: KYA MARTINEZ Room: [address]#: [id number] Admission: 03/22/21 Attend Phys: Jake Abel Discharge: Date of : 65 Date of Service: 03/22/21 0842 Report #: [id number] THIS REPORT FOR: //name// [facility] ED Test Date: 2021-03-22 Test Time: 08:42:10 Pat Name: KYA MARTINEZ Department: Room: [facility] Gender: F Vp Foundation: BRITTON : 1965 Requested By: John Mast Order Number: [id number] MD: Harley Knight Measurements Intervals [place] Rate: 62 P: 30 IA: 193 QRS: 99 QRSD: 116 T: 51 QT: 423 QTc: 430 Interpretive Statements Sinus rhythm Nonspecific intraventricular conduction delay Low voltage, extremity and precordial leads Compared to ECG 03/15/2021 03:36:20 Intraventricular conduction delay now present Atrial fibrillation no longer present Myocardial infarct finding no longer present Electronically Signed On 03-22-2021 14:29:40 CDT by Harley Knight [email or web address] <ELECTRONICALLY SIGNED> By: Harley Knight MD, [facility] 03/22/21 1429 0842 0842 Harley Knight MD, [facility] /EPI
[2021-03-22 16:29] VITALS: BP 111/56
--- NOTE | 2021-03-22 17:20 | NUR ---
RECEIVED REPORT FROM KEESHA THOMPSON. PT ARRIVED ON UNIT AROUND 1310. ASSUMED CARE. VS AND ASSESSMENT CHARTED. ADMIT DONE. IV INTACT LEFT FOREARM. HEART MONITOR ATTACHED AT SR WITH 1ST DEGREE. PT ABLE TO BE UP ADLIB. PT HAS PAIN ALL THE TIME. SAID "I USUALLY TOLERATE IT". MEDS GIVEN PER MAR. HOURLY ROUNDING PERFORMED. CALL LIGHT WITH IN REACH. WILL CONTINUE TO MONITOR.
[2021-03-22 20:20] VITALS: BP 108/55
[2021-03-23] VITALS: BP 100/43
[2021-03-23 04:08] VITALS: BP 120/67
[2021-03-23 06:20] LABS: HEMATOCRIT 36.8 % (37.0-47.0); HEMOGLOBIN 12.4 gm/dL (12.0-15.0); MCH 30.3 pg (26.0-34.0); MCHC 33.6 g/dL (28.0-37.0); MCV 90.2 fL (80.0-100.0); MPV 9.3 fl. (7.2-11.1); RBC 4.08 mil/uL (4.20-5.00); RDW-CV 13.5 % (10.5-14.5); WBC 7.2 thou/uL (4.0-11.0)
[2021-03-23 06:31] LABS: CALCIUM 8.4 mg/dL (8.5-10.1); CREATININE 0.8 mg/dL (0.6-1.3); POTASSIUM 3.8 mmol/L (3.5-5.1)
[2021-03-23 08:00] VITALS: BP 123/69
[2021-03-23] MEDS ORDERED: AUGMENTIN 500-1 EACH PO (08:07)
[2021-03-23 11:50] VITALS: BP 123/69
--- NOTE | 2021-03-23 12:30 | NUR ---
RECEIVED REPORT AROUND 0715. ASSUMED CARE. VS AND ASSESSMENT CHARTED. IV INTACT LEFT FOREARM. HEART MONITOR ATTACHED AT SB WITH 1ST DEG. PT UP ADLIB. SOME PAIN THIS AM. MEDS GIVEN PER NOV. HOURLY ROUNDING PERFORMED. DISCHARGE ORDERS RECEIVED. IV TAKEN OUT. HEART MONITOR OFF. TALKED WITH . OK WITH DISCHARGE. GAVE PT SCRIPTS AND APPOINTMENT CARDS. DISCHARGE PACKET GIVEN. COMMUNICATED UNDERSTANDING. PT LEFT UNIT VIA WHEEL CHAIR WITH NURSING STAFF AND ALL BELONGINGS AT 1215.
== END 2021-03-23 12:15 | disposition home or self-care (01) ==
LOC: M.ERS 08:25 → M.TBA-ER 10:53 → M.2W 10:53
PROVIDERS: Emergency Medicine; Family Medicine; ADMIT Internal Medicine; ATTEND Internal Medicine
DX: I11.0 Hypertensive heart disease with heart failure (principal); I50.33 Acute on chronic diastolic (congestive) heart failure; Z20.822 Contact with and (suspected) exposure to COVID-19; I48.0 Paroxysmal atrial fibrillation; J32.9 Chronic sinusitis, unspecified; E03.9 Hypothyroidism, unspecified; E78.5 Hyperlipidemia, unspecified; F41.9 Anxiety disorder, unspecified; E66.01 Morbid (severe) obesity due to excess calories; Z68.42 Body mass index [BMI] 45.0-49.9, adult; Z79.82 Long term (current) use of aspirin; Z79.01 Long term (current) use of anticoagulants; Z79.899 Other long term (current) drug therapy

== ENCOUNTER 2021-04-15 12:12 | Inpatient (IN) | payer OTHER ==
[~2021-04-15] VITALS: Ht 160 cm; Wt 113.9 kg
[~2021-04-15 12:12] MED LIST changes: +AUGMENTIN 500-1 EACH PO
[2021-04-15 12:31] VITALS: BP 111/92
[2021-04-15] MEDS ORDERED: OMEPRAZOLE 20 M20 M1 PO (12:35)
[2021-04-15] MEDS ORDERED: PROBIOTIC1 EAC7 PO (12:35)
[2021-04-15 13:41] LABS: ABSOLUTE BASOPHILS 0.1 thou/uL (0.0-0.2); ABSOLUTE EOSINOPHILS 0.1 thou/uL (0.0-0.7); ABSOLUTE LYMPHOCYTES 2.1 thou/uL (0.8-5.3); ABSOLUTE MONOCYTES 0.9 thou/uL (0.0-1.2); ABSOLUTE NEUTROPHILS 7.8 thou/uL (1.6-8.1); BASOPHILS 0.9 %; EOSINOPHILS 1.2 %; HEMATOCRIT 47.1 % (37.0-47.0); LYMPHOCYTES 19.1 %; MCV 88.2 fL (80.0-100.0); MONOCYTES 8.3 %; NUCLEATED RBCS 0 /100WBC; PLATELET COUNT* 345 thou/uL (150-400); POLYS 70.5 %; RBC 5.34 mil/uL (4.20-5.00); RDW-CV 14.1 % (10.5-14.5); WBC 11.1 thou/uL (4.0-11.0)
[2021-04-15 13:50] LABS: ANION GAP 13 mmol/L (7-16); BUN 24 mg/dL (7-18); CALCIUM 9.1 mg/dL (8.5-10.1); CHLORIDE 105 mmol/L (98-107); CO2 23 mmol/L (21-32); CREATININE 0.9 mg/dL (0.6-1.3); GLUCOSE 107 mg/dL (70-99); SODIUM 141 mmol/L (136-145)
[2021-04-15 14:04] LABS: ALBUMIN 3.9 g/dL (3.4-5.0); ALKALINE PHOSPHATASE 98 U/L (46-116); CK-MB MASS < 0.5 ng/mL (<0.5-3.6); LIPASE 306 U/L (73-393); MAGNESIUM 1.9 mg/dL (1.8-2.4); NT-PRO BRAIN NAT PEPTIDE 568 pg/mL (<300); SGOT 30 U/L (15-37); SGPT 74 U/L (30-65); TOTAL BILIRUBIN 0.6 mg/dL (<0.1-1.0); TOTAL PROTEIN 8.3 g/dL (6.4-8.2)
--- NOTE | 2021-04-15 17:06 | EKG ---
[place] [address] ELECTROCARDIOGRAM REPORT Name: KYA MARTINEZ Room: [place] [address] ADM IN [facility]#: [id number] Admission: 04/15/21 Attend Phys: Jake Abel Discharge: Date of : 65 Date of Service: 04/15/21 1325 Report #: [id number] THIS REPORT FOR: //name// [facility] ED Test Date: 2021-04-15 Test Time: 13:25:06 Pat Name: KYA MARTINEZ Department: Room: [facility] Gender: F Safety Council Director: GEORGE : 1965 Requested By: Jose Luis Bishop Order Number: [id number] MD: John Sun Measurements Intervals [place] Rate: 117 P: -48 NC: 141 QRS: 102 QRSD: 91 T: 34 QT: 329 QTc: 459 Interpretive Statements Atrial fibrillation right axis deviation Low voltage, precordial leads Compared to ECG 03/22/2021 08:42:10 Right-axis deviation now present Sinus rhythm no longer present Electronically Signed On 04-15-2021 17:06:51 CDT by John Sun [email or web address] <ELECTRONICALLY SIGNED> By: John Sun MD, FACC 04/15/21 1706 1325 1325 John Sun MD, FACC /EPI
[2021-04-15 18:30] VITALS: BP 114/61
[2021-04-15 18:59] VITALS: BP 107/63
[2021-04-15 20:00] VITALS: BP 116/73
[2021-04-16 00:14] VITALS: BP 104/50
[2021-04-16 04:47] VITALS: BP 99/61
[2021-04-16 08:00] VITALS: BP 100/69
[2021-04-16 12:00] VITALS: BP 113/59
--- NOTE | 2021-04-16 12:05 | EKG ---
[place] [address] ELECTROCARDIOGRAM REPORT Name: KYA MARTINEZ Room: [place] [address] ADM IN .R.#: [id number] Admission: 04/15/21 Attend Phys: Jake Abel Discharge: Date of : 65 Date of Service: 04/16/21 0832 Report #: [id number] THIS REPORT FOR: //name// [facility] Test Date: 2021-04-16 Test Time: 08:32:30 Pat Name: KYA MARTINEZ Department: Room: [place] [address] Gender: F Director Transition: BEE : 1965 Requested By: Brigette Platt Order Number: [id number] Reading MD: John Sun Measurements Intervals [place] Rate: 66 P: SC: QRS: 95 QRSD: 103 T: -61 QT: 431 QTc: 452 Interpretive Statements Atrial fibrillation Borderline right axis deviation Low voltage, precordial leads Minimal ST depression, inferior leads Compared to ECG 04/15/2021 13:25:06 ST (T wave) deviation now present Electronically Signed On 04-16-2021 12:04:51 CDT by John Sun [email or web address] <ELECTRONICALLY SIGNED> By: John Sun MD, FACC 04/16/21 1204 0832 0832 John Sun MD, FACC /EPI
[2021-04-16 16:00] VITALS: BP 108/75
[2021-04-16 20:10] VITALS: BP 118/62
[2021-04-17] VITALS (16 sets, daily range): BP systolic 83–124; BP diastolic 47–76
[2021-04-17 04:50] LABS: CALCIUM 8.8 mg/dL (8.5-10.1); CREATININE 0.8 mg/dL (0.6-1.3); POTASSIUM 3.7 mmol/L (3.5-5.1)
--- NOTE | 2021-04-17 09:30 | EKG ---
[place] [address] ELECTROCARDIOGRAM REPORT Name: KYA MARTINEZ Room: [place] [address] ADM IN .R.#: [id number] Admission: 04/15/21 Attend Phys: Jake Abel Discharge: Date of : 65 Date of Service: 04/17/21 0636 Report #: [id number] THIS REPORT FOR: //name// [facility] Test Date: 2021-04-17 Test Time: 06:36:34 Pat Name: KYA MARTINEZ Department: Room: [place] [address] Gender: F Administrative Personal Assistant: CSCHNORF : 1965 Requested By: Brigette Platt Order Number: [id number] Reading MD: Deonte Servin Measurements Intervals [place] Rate: 84 P: LA: QRS: 89 QRSD: 105 T: -67 QT: 398 QTc: 471 Interpretive Statements Atrial fibrillation low voltage Probable anterior infarct, age indeterminate Baseline wander in lead(s) V1,V2 Compared to ECG 04/16/2021 08:32:30 Myocardial infarct finding now present Electronically Signed On 04-17-2021 9:29:51 CDT by Deonte Servin [email or web address] <ELECTRONICALLY SIGNED> By: Deonte Servin MD, FAC 04/17/21 0929 0636 Deonte Servin MD, FAC /EPI
[2021-04-17] MEDS ORDERED: SORINE 80 MG TA80 M1 PO (13:20)
--- NOTE | 2021-04-17 15:41 | TEE ---
[place] [address] TRANSESOPHAGEAL ECHOCARDIOGRAM Name: KYA MARTINEZ Gary Room: [address] IN [facility]#: [id number] Admission: 04/15/21 Attend Phys: Jake Abel Discharge: Date of : 65 Date of Service: 04/17/21 1540 Report #: [id number] THIS REPORT FOR: cc: Varsha Maurer MD, Veronica A. MD Blick,Deonte Liriano MD [facility] ~ APPROVED REPORT Study performed: 04/17/2021 11:13:33 EXAM: Transesophageal Echocardiogram and cardioversion Patient Location: In-Patient Room #: 227 Status: routine BSA: 2.13 HR: 79 bpm BP: 124/47 mmHg Rhythm: Atrial Fibrillation Other Information Study Quality: Good Indications Atrial Fibrillation Echo Enhancing Agent Indication: Rule out Shunt Agent(s) / Amount(s) Used: Agitated Saline 20 cc Comments: 2 bubblo studies Procedure After obtaining informed consent, patient underwent transesophageal echo in the [facility]. Type of Sedation : Conscious Sedation Sedation was administered by Wanda Hackett RN. Sedation start time: 1205 Case end Time: 1220 Sedation was achieved intravenously with: Versed (6) Fentanyl (75) Transesophageal probe was inserted and advanced into esophagus without difficulty by Deonte Servin MD, [facility]. Echo enhancement indication: R/O Septal defect. Echo enhancement agent administered: Agitated Saline The YUE was performed without complications. Synchronized Cardioversion attempted: [place] [address] TRANSESOPHAGEAL ECHOCARDIOGRAM Name: KYA MARTINEZ Room: [address]#: [id number] Admission: 04/15/21 Attend Phys: Jake Abel Discharge: Date of : 65 Date of Service: 04/17/21 1540 Report #: [id number] Synchronized Cardioversion acheived with 200 Joules after 1 attempt(s). Rhythm following Synchronized Cardioversion: Normal Sinus Rhythm Throughout the procedure, the blood pressure, pulse oximetry, cardiac rhythm, and rate were monitored. The patient tolerated the procedure without adverse effects. Recovery from conscious sedation was uneventful and vital signs were stable. Left Ventricle The left ventricle is normal size. There is normal LV segmental wall motion. There is normal left ventricular wall thickness. Left ventricular systolic function is normal. The left ventricular ejection fraction is within the normal range. LVEF is 60-65%. Right Ventricle The right ventricle is normal size. The right ventricular systolic function is normal. Atria Left atrium is mildly dilated. No thrombus is visualized in the left atrium or appendage. The interatrial septum is intact with no evidence for an atrial septal defect. The right atrium size is normal. Aortic Valve The aortic valve is normal in structure. Mild aortic regurgitation. There is no aortic valvular stenosis. Mitral Valve The mitral valve is normal in structure. Trace mitral regurgitation. No evidence of mitral valve stenosis. Tricuspid Valve The tricuspid valve is normal in structure. Mild tricuspid regurgitation. Pulmonic Valve The pulmonary valve is normal in structure. There is no pulmonic valvular regurgitation. Great Vessels The aortic root is normal in size. Pericardium There is [place] [address] TRANSESOPHAGEAL ECHOCARDIOGRAM Name: KYA MARTINEZ Room: [address] IN ..#: [id number] Admission: 04/15/21 Attend Phys: Jake Abel Discharge: Date of : 65 Date of Service: 04/17/211539 Report #: [id number] <Conclusion> LVEF is 60-65%. Left atrium is mildly dilated. No thrombus is visualized in the left atrium or appendage. Mild aortic regurgitation. The interatrial septum is intact with no evidence for an atrial septal defect. successful cardioversion of atrial fibrillation to sinus rhythm <ELECTRONICALLY SIGNED> By: Deonte Servin MD, [facility] 04/17/21 1540 1540 1540 Deonte Servin MD, FACC /INF
== END 2021-04-17 17:40 | disposition home or self-care (01) | DRG 309 ==
LOC: M.ERS 12:12 → M.TBA-ER 13:50 → M.2W 13:50
PROVIDERS: Family Medicine; Registered Nurse; ADMIT Internal Medicine; ATTEND Internal Medicine
PROC: B24BZZ4 Ultrasonography of Heart with Aorta, Transesophageal (ICD-10-PCS; principal; 2021-04-17)
PROC: 5A2204Z Restoration of Cardiac Rhythm, Single (ICD-10-PCS; principal; 2021-04-17)
DX: I48.0 Paroxysmal atrial fibrillation (principal); Z68.41 Body mass index [BMI] 40.0-44.9, adult; I10 Essential (primary) hypertension; F32.9 Major depressive disorder, single episode, unspecified; E03.9 Hypothyroidism, unspecified; J40 Bronchitis, not specified as acute or chronic; G43.909 Migraine, unspecified, not intractable, without status migrainosus; I48.20 Chronic atrial fibrillation, unspecified; E66.01 Morbid (severe) obesity due to excess calories; G47.33 Obstructive sleep apnea (adult) (pediatric); Z87.891 Personal history of nicotine dependence; Z90.49 Acquired absence of other specified parts of digestive tract; Z88.2 Allergy status to sulfonamides; Z20.822 Contact with and (suspected) exposure to COVID-19

== ENCOUNTER 2021-05-01 12:18 | Observation (INO) | payer OTHER ==
[~2021-05-01] VITALS: Ht 160 cm; Wt 113.8 kg
[~2021-05-01 12:18] MED LIST changes: +OMEPRAZOLE 20 M20 M1 PO; +PROBIOTIC1 EAC7 PO
[2021-05-01 13:00] VITALS: BP 110/58
[2021-05-01 13:10] VITALS: BP 100/60
[2021-05-01] MEDS ORDERED: LASIX 40 MG TAB40 MG PO (13:42)
[2021-05-01] MEDS ORDERED: SINGULAIR 10 MG10 MG PO (13:43)
[2021-05-01] MEDS ORDERED: POTASSIUM20 PO (13:44)
[2021-05-01] MEDS ORDERED: SUPER THERAVIT1 EACH PO (13:46)
--- NOTE | 2021-05-01 13:52 | H ---
[place] [address] HISTORY AND PHYSICAL Name: KYA MARTINEZ Room: [place] [address] ADM V[facility] [place]ime#: [id number] Admission: 05/01/21 Attend Phys: Deonte Servin MD, F Discharge: Date of : 65 Report #: [id number] THIS REPORT FOR: cc: Varsha Maurer MD,Varsha Servin,Deonte Liriano MD [facility] ~ cc: Varsha Maurer MD ADMIT DATE: 05/01/2021 CARDIOLOGY CONSULTATION AND HISTORY AND PHYSICAL HISTORY OF PRESENT ILLNESS: The patient is a 55-year-old single white female who came to the outpatient department after being noted to be in atrial fibrillation. The patient was diagnosed with COVID-19 in August. She eventually recovered. However, in November, she was admitted to [facility] with atrial fibrillation. She was placed on Eliquis and metoprolol. She did not require cardioversion. As part of preoperative evaluation, she underwent a stress test at [facility] that showed no evidence of ischemia. She then was admitted in early March in [place] for bariatric surgery. She was admitted here to [facility] after her bariatric surgery with atrial fibrillation. I saw her in consultation and performed a YUE and cardioversion earlier this month. The YUE showed ejection fraction 60%, left atrial enlargement, no thrombus, mild aortic insufficiency, no evidence of shunt. She was then cardioverted to sinus rhythm and switched from metoprolol to sotalol. After discharge, she continues to have episodes of rapid heartbeat and lightheadedness. After 1 episode, she actually came to my office 2 days ago and electrocardiogram showed atrial fibrillation with rapid ventricular response rate, nonspecific ST and T-wave changes. She was told to increase sotalol to 240 mg twice a day. However, she subsequently became lightheaded. She was therefore instructed to come to the hospital today for possible repeat cardioversion. She denies any chest pain, shortness of breath, fever or bleeding. She has felt lightheaded and had no energy, no appetite. PAST MEDICAL HISTORY: She has had previous cholecystectomy, hernia repair. She does have a history of hypertension. CURRENT MEDICATIONS: Include Eliquis, Lasix for swelling, Synthroid, Singulair as needed for asthma, omeprazole. She has been taking sotalol 160 mg twice a day, trazodone. ALLERGIES: SHE HAS AN ALLERGY TO SULFA DRUGS. FAMILY HISTORY: Father of heart attack. SOCIAL HISTORY: She is , lives in [place], [place] [address] HISTORY AND PHYSICAL Name: KYA MARTINEZ Room: [address] M.Heri#: [id number] Admission: 05/01/21 Attend Phys: Deonte Servin MD, F Discharge: Date of : 65 Report #: [id number] manager stars for Rodney. Quit smoking 2 years ago. Rarely drinks alcohol. REVIEW OF SYSTEMS: She is overweight being 5 feet 2 inches, 260 pounds. She had a sleep study in the past, was found to have sleep apnea. She does not use CPAP at this time. No history of stroke, liver disease, kidney disease, cancer, psychiatric illness or chronic skin condition. PHYSICAL EXAMINATION: GENERAL: Revealed middle-aged female, appeared in no distress. VITAL SIGNS: Blood pressure 120/70, pulse was 66. HEENT: She was anicteric. Conjunctivae pink. Mucous membranes moist. NECK: Veins do not appear distended. Neck is supple. CHEST: Clear to auscultation. HEART: Regular rate and rhythm. ABDOMEN: Obese. EXTREMITIES: Had no pitting edema. SKIN: Cool and dry. LABORATORY DATA: ECG shows a sinus rhythm with poor R-wave progression. There was no QT prolongation. Her portable chest x-ray was performed 2 weeks ago here at [facility] that showed no acute abnormality. Lab work 2 weeks ago, potassium 3.7, creatinine 0.8. Liver function studies were normal. Her TSH 1.8, T4 0.8. White blood cell count 11.1, hemoglobin 16.0. IMPRESSION AND RECOMMENDATIONS: 1. Paroxysmal atrial fibrillation. The patient cannot tolerate higher dose of sotalol. Recommend admitting the patient to the hospital, stopping sotalol and begin loading with amiodarone. I would consider referral for an ablation. I would continue anticoagulation with Eliquis. 2. Hypertension. The patient is on a beta nina. 3. Morbid obesity. Recent bariatric surgery. 4. Sleep apnea. <ELECTRONICALLY SIGNED> By: Deonte Servin MD, FACC 05/01/21 1352 1203 1230Deonte Servin MD, FAC /nt
--- NOTE | 2021-05-01 13:58 | EKG ---
[place] [address] ELECTROCARDIOGRAM REPORT Name: MICHELLEKYAFRANKLIN MORTON Room: [address] M.R.#: [id number] Admission: 05/01/21 Attend Phys: Deonte Servin MD Discharge: Date of : 65 Date of Service: 05/01/21 1241 Report #: [id number] THIS REPORT FOR: //name// [facility] Test Date: 2021-05-01 Test Time: 12:41:17 Pat Name: KYA MARTINEZ Department: Room: [facility] Gender: F Experimental Rocket Sled Mechanic: SHALONDA : 1965 Requested By: Deonte Servin Order Number: [id number] Reading MD: Deonte Servin Measurements Intervals [place] Rate: 64 P: 14 WV: 201 QRS: 67 QRSD: 108 T: -11 QT: 462 QTc: 477 Interpretive Statements Sinus rhythm poor r wave progression Low voltage, extremity and precordial leads Compared to ECG 04/17/2021 06:36:34 Atrial fibrillation no longer present Electronically Signed On 05-01-2021 13:57:57 CDT by Deonte Servin [email or web address] <ELECTRONICALLY SIGNED> By: Deonte Servin MD, [facility] 05/01/21 1357 1241 1241 Deonte Servin MD, [facility] /EPI
[2021-05-01 15:55] VITALS: BP 109/53
[2021-05-01 16:39] VITALS: BP 114/53
--- NOTE | 2021-05-01 17:21 | NUR ---
RECIEVED REPORT FROM LOGGING CREW FOREMAN KEESHA CRUZ-WAS ADMITTED FOR AMIO LOAD R/T A-FIB PRIOR TO ADMIT AND UNABLE TO TOLERATE SOTALOL- PT ARRIVED VIA BED TO ROOM 226 AT 1618- BEHAVIORAL HEALTH CONSULTANT IN PLACE, NOTED SR-PT A&O X4- CONT OF BOWEL AND BLADDER- UP AD-IMAN IN ROOM, STEADY GAIT- DENIES ANY OPEN SOARS/WOUNDS- IV NOTED TO RIGHT AC INTACT AND SL- DENIES ANY C/O PAIN- CALL LIGHT AND PERSONAL BELONGINGS WITH IN REACH- ALL NEEDS MET AT THIS TIME
[2021-05-01 19:40] VITALS: BP 117/63
[2021-05-02] VITALS (7 sets, daily range): BP systolic 90–146; BP diastolic 52–78
[2021-05-02 04:42] LABS: HEMATOCRIT 39.4 % (37.0-47.0); HEMOGLOBIN 13.1 gm/dL (12.0-15.0); MCH 29.1 pg (26.0-34.0); MCHC 33.2 g/dL (28.0-37.0); MCV 87.7 fL (80.0-100.0); MPV 10.1 fl. (7.2-11.1); RBC 4.49 mil/uL (4.20-5.00); RDW-CV 13.9 % (10.5-14.5); WBC 5.8 thou/uL (4.0-11.0)
[2021-05-02 05:08] LABS: CALCIUM 8.5 mg/dL (8.5-10.1); CREATININE 0.7 mg/dL (0.6-1.3); POTASSIUM 3.1 mmol/L (3.5-5.1)
--- NOTE | 2021-05-02 07:08 | NUR ---
SR/SB HR LOW 47 THIS SHIFT. PT VOICED NO CONCERNS THIS SHIFT. HOURLY ROUNDING COMPLETED. CALL LIGHT WITHIN REACH.
--- NOTE | 2021-05-02 08:59 | NUR ---
ASSUMED CARE OF PT THIS AM AROUND 0715- INTERIOR DESIGN PROFESSIONAL IN PLACE ORDERED, TRACING SR/1ST DEGREE- UPON ASSESSMENT PT NOTED TO BE RESTING IN BED- PT A&O X4 CONT OF B/B- UP AD-IMAN IN ROOM, STEADY GAIT NOTED-VSS, O2 SAT 99% ON RA- ABD SOFT/OBESE/NON-TENDER, BS X4 QUADS- PT REPORTS HEART BURN/INDIGESTION; ORDERS OBTAINED FOR MALOX THIS AM AND GIVEN AT 0845- IV NOTED TO RIGHT AC INTACT AND SL- PT REPORTED HEAD ACHE 04/06 THIS AM, ORDERS OBTAINED FOR TYLENOL AND GIVEN THIS AM PRESCRIBED AT 0845- CALL LIGHT AND PERSONAL BELONGINGS WITH IN REACH- PT MAKES NEEDS KNOWN- ALL NEEDS MET AT THIS TIME
--- NOTE | 2021-05-02 10:05 | NUR ---
CM ASSESSMENT: PT A&O, INDEPENDENT WITH ADL'S, ACTIVE AND WORKS OUTSIDE THE HOME. PT RESIDES AT HOME ALONE. PT OCCATIONALLY USES A CANE FOR MOBILITY IN THE COMMUNITY. PT HAS 0 HX OF HH OR SNF. NO CM D/C PLANNING NEEDS ANTICIPATED. CM WILL REMAIN AVAILABLE TO ASSIST AND FOLLOW NEEDED.
--- NOTE | 2021-05-02 15:36 | CON ---
[address] [address] CONSULTATION Name: KYA MARTINEZ Room: [address] Vito [place]#: [id number] Admission: 05/01/21 Attend Phys: Deonte Servin MD, F Discharge: Date of : 65 Report #: [id number] THIS REPORT FOR: cc: Varsha Maurer MD, Veronica A. MD Blick,Deonte Liriano MD FAC ~ cc: Kusum Stovall, DATE OF CONSULTATION: 05/01/2021 CARDIOLOGY CONSULT NOTE HISTORY OF PRESENT ILLNESS: The patient is a 55-year-old single white female who was last seen in the hospital today after she complained to be in short of breath. The patient has an extensive past medical history. She has been followed by my partner, Dr. Harley Knight. She has had several stress tests and echocardiograms in the past. Her last nuclear stress test was in 2018 here at [facility] using Lexiscan Cardiolite. Results showed ejection fraction of 66%. There are no reversible defects to suggest ischemia. Her last echocardiogram in 2019 showed ejection fraction 45% with mild mitral regurgitation. The patient is not very active this time. She has a history of chronic diarrhea. Recently, she has had nausea and vomiting. She has had increasing shortness of breath. She does have chronic edema. She has had some cough, but no fever. Denied any chest pain. Because of the diarrhea, she finally called EMS yesterday and was brought here to [facility]. In the Emergency Room, she apparently fell. X-ray showed evidence of pulmonary embolus. Cardiology consultation was requested. PAST MEDICAL HISTORY: She has had back surgery, bladder surgery, carpal tunnel surgery, hysterectomy, rotator cuff surgery. She has a history of hypertension. CURRENT MEDICATIONS: Consist of carvedilol, Lasix for the swelling. She has been on Imdur, omeprazole, Singulair as needed. ALLERGIES: SHE HAS A PREVIOUS INTOLERANCE TO MULTIPLE MEDICATIONS INCLUDING AMOXICILLIN, DETROL, KEFLEX, ULTRAM, SULFA DRUGS. FAMILY HISTORY: Negative for heart disease. SOCIAL HISTORY: She is , lives by herself in [place]. She is not very active this time. No smoking or alcohol abuse. REVIEW OF SYSTEMS: VITAL SIGNS: She is overweight, being 4 feet 11 inches, 210 pounds. She had a blood pressure of 140/80, pulse is 80, she is afebrile. HEENT: She was anicteric. Conjunctivae pink[place] [address] CONSULTATION Name: KYA MARTINEZ Room: [address] Vito M.RShahla#: [id number] Admission: 05/01/21 Attend Phys: Deonte Servin MD, F Discharge: Date of : 65 Report #: [id number] NECK: Veins were difficult to assess due to obesity. No carotid bruits. NECK: Supple. CHEST: Clear to auscultation. HEART: Regular rate and rhythm. Occasional prematurity. ABDOMEN: Obese, soft. EXTREMITIES: Had trace edema. SKIN: Cool and dry. NEUROLOGIC: Nonfocal. LABORATORY DATA: ECG on admission showed atrial fibrillation with increased ventricular response rate, left axis deviation, nonspecific T-wave changes. Workup in the Emergency Room yesterday, she had a CT scan of the head without contrast after she fell that showed no acute abnormality. She had a CT scan of the chest because of her shortness of breath that showed evidence of a right upper lobe pulmonary artery embolus. Her lab work, sodium 138, potassium 3.7, creatinine 1.1. Liver function studies were normal. Troponin less than 0.06. Her white blood cell count 5.4, hemoglobin 13.8. Her COVID antigen stat test was negative. IMPRESSION AND RECOMMENDATIONS: 1. Onset unclear. I would not recommend attempts at cardioversion. I would aim for rate control and anticoagulation. 2. Pulmonary embolus. The patient is now anticoagulated. 3. Hypertension. The patient is on a beta nina. 4. Venous stasis. The patient is on Lasix. 5. Morbid obesity. 6. Chronic diarrhea. The patient is followed by GI. <ELECTRONICALLY SIGNED> By: Deonte Servin MD, [facility] 05/02/21 1536 1330 1940Deonte Servin MD, FAC /nt
[2021-05-03] VITALS: BP 101/55
[2021-05-03 04:00] VITALS: BP 118/64
--- NOTE | 2021-05-03 04:02 | NUR ---
PT ALERT ORIENTED. CO ABD PAIN. HYDROCODONE AND MORPHINE GIVEN FOR PAIN. FONDANT PUFF MAKER TRACING SR.
[2021-05-03 12:00] VITALS: BP 117/67
[2021-05-03] MEDS ORDERED: AMIODARONE HCL400 MG PO (13:11)
--- NOTE | 2021-05-03 13:30 | EKG ---
[place] [address] ELECTROCARDIOGRAM REPORT Name: KYA MARTINEZ Room: [address] M.R.#: [id number] Admission: 05/01/21 Attend Phys: Deonte Servin MD Discharge: Date of : 65 Date of Service: 05/03/21 1129 Report #: [id number] THIS REPORT FOR: //name// [facility] Test Date: 2021-05-03 Test Time: 11:29:11 Pat Name: KYA MARTINEZ Department: Room: [address] Gender: F Set Up And Charger: SHAILA : 1965 Requested By: Deonte Servin Order Number: [id number] Reading MD: Deonte Servin Measurements Intervals [place] Rate: 63 P: -37 DE: 179 QRS: 69 QRSD: 96 T: 5 QT: 418 QTc: 428 Interpretive Statements Sinus rhythm poor r wave progression Low voltage, extremity and precordial leads Compared to ECG 05/01/2021 12:41:17 rate has slowed Electronically Signed On 05-03-2021 13:30:01 CDT by Deonte Servin [email or web address] <ELECTRONICALLY SIGNED> By: Deonte Servin MD, [facility] 05/03/21 1330 1129 1129 Deonte Servin MD, [facility] /EPI
--- NOTE | 2021-05-03 15:26 | NUR ---
PLAN FOR THE PT TO D/C HOME WITH SELF-CARE PENDING CARDIOLOGY RECOMMENDATIONS. NO CM D/C PLANNING NEEDS ANTICIPATED. CM WILL REMAIN AVAILABLE TO ASSIST AND FOLLOW NEEDED.
[2021-05-03 15:37] VITALS: BP 112/65
== END 2021-05-03 16:49 | disposition home or self-care (01) ==
LOC: M.CL 12:18 → M.TBA-CV 13:10 → M.2W 16:19
PROVIDERS: ADMIT Internal Medicine Cardiovascular Disease; ATTEND Internal Medicine Cardiovascular Disease
DX: I48.91 Unspecified atrial fibrillation (principal); E03.9 Hypothyroidism, unspecified; I11.0 Hypertensive heart disease with heart failure; I50.9 Heart failure, unspecified; G47.33 Obstructive sleep apnea (adult) (pediatric); G43.909 Migraine, unspecified, not intractable, without status migrainosus; E66.01 Morbid (severe) obesity due to excess calories; K21.9 Gastro-esophageal reflux disease without esophagitis; K59.00 Constipation, unspecified; R10.9 Unspecified abdominal pain; J40 Bronchitis, not specified as acute or chronic; Z87.891 Personal history of nicotine dependence; Z79.899 Other long term (current) drug therapy

== ENCOUNTER → 2021-08-27 | Outpatient (CLI) | payer OTHER ==
[~2021-08-27] MED LIST changes: +AMIODARONE HCL400 MG PO; +K-DUR 20 MEQ T20 MEQ PO; +LASIX 40 MG TAB40 MG PO; +SINGULAIR 10 MG10 MG PO; +SUPER THERAVIT1 EACH PO
[2021-08-27 10:36] LABS: CALCIUM 8.6 mg/dL (8.5-10.1); CREATININE 0.8 mg/dL (0.6-1.3); POTASSIUM 3.1 mmol/L (3.5-5.1)
== END ==
LOC: M.LAB 10:13
PROVIDERS: ATTEND Nurse Practitioner
DX: R00.2 Palpitations (principal)

== ENCOUNTER 2021-09-18 16:29 | Emergency (ER) | payer OTHER ==
[~2021-09-18] VITALS: Ht 160 cm; Wt 83.9 kg
[2021-09-18 17:31] LABS: INFLUENZA A ANTIGEN Negative (Negative); INFLUENZA B ANTIGEN Negative (Negative)
[2021-09-18 18:28] LABS: ABSOLUTE BASOPHILS 0.1 thou/uL (0.0-0.2); ABSOLUTE EOSINOPHILS 0.1 thou/uL (0.0-0.7); ABSOLUTE MONOCYTES 0.7 thou/uL (0.0-1.2); ABSOLUTE NEUTROPHILS 5.8 thou/uL (1.6-8.1); EOSINOPHILS 1.2 %; HEMOGLOBIN 14.4 gm/dL (12.0-15.0); LYMPHOCYTES 23.2 %; MCH 29.5 pg (26.0-34.0); MCHC 33.6 g/dL (28.0-37.0); MCV 87.7 fL (80.0-100.0); MONOCYTES 7.8 %; MPV 10.4 fl. (7.2-11.1); NUCLEATED RBCS 0 /100WBC; PLATELET COUNT* 260 thou/uL (150-400); POLYS 66.8 %; RDW-CV 13.4 % (10.5-14.5); WBC 8.6 thou/uL (4.0-11.0)
[2021-09-18 18:34] LABS: CALCIUM 8.5 mg/dL (8.5-10.1); CREATININE 0.7 mg/dL (0.6-1.3); POTASSIUM 3.8 mmol/L (3.5-5.1)
[2021-09-18 18:39] LABS: ALBUMIN 3.4 g/dL (3.4-5.0); TOTAL BILIRUBIN 0.3 mg/dL (<0.1-1.0); TOTAL PROTEIN 7.2 g/dL (6.4-8.2)
[2021-09-18] MEDS ORDERED: AUGMENTIN 875-1 EACH PO (18:47)
[2021-09-18 18:59] VITALS: BP 130/54
== END 2021-09-18 19:03 | disposition home or self-care (01) ==
LOC: M.ERS 16:29
PROVIDERS: Family Medicine; Physician Assistant
DX: G43.909 Migraine, unspecified, not intractable, without status migrainosus (principal); Z20.822 Contact with and (suspected) exposure to COVID-19; M54.2 Cervicalgia; R53.81 Other malaise; I48.91 Unspecified atrial fibrillation; I10 Essential (primary) hypertension; E03.9 Hypothyroidism, unspecified; Z90.49 Acquired absence of other specified parts of digestive tract; Z98.51 Tubal ligation status; F32.9 Major depressive disorder, single episode, unspecified; L40.9 Psoriasis, unspecified; F17.210 Nicotine dependence, cigarettes, uncomplicated; Z98.84 Bariatric surgery status; Z79.899 Other long term (current) drug therapy; Z88.2 Allergy status to sulfonamides

== ENCOUNTER 2021-10-15 10:23 | Emergency (ER) | payer OTHER ==
[~2021-10-15] VITALS: Ht 160 cm; Wt 80.7 kg
[~2021-10-15 10:23] MED LIST changes: +AUGMENTIN 875-1 EACH PO
[2021-10-15] MEDS ORDERED: LISINOPRIL20 MG PO (10:37)
[2021-10-15] MEDS ORDERED: PRENATAL PO (10:37)
[2021-10-15 11:04] LABS: ABSOLUTE BASOPHILS 0.1 thou/uL (0.0-0.2); ABSOLUTE EOSINOPHILS 0.1 thou/uL (0.0-0.7); ABSOLUTE LYMPHOCYTES 1.2 thou/uL (0.8-5.3); ABSOLUTE MONOCYTES 0.5 thou/uL (0.0-1.2); ABSOLUTE NEUTROPHILS 5.6 thou/uL (1.6-8.1); BASOPHILS 0.7 %; EOSINOPHILS 0.7 %; HEMATOCRIT 43.4 % (37.0-47.0); HEMOGLOBIN 14.6 gm/dL (12.0-15.0); LYMPHOCYTES 16.1 %; MCH 28.8 pg (26.0-34.0); MCHC 33.6 g/dL (28.0-37.0); MCV 85.7 fL (80.0-100.0); MONOCYTES 6.6 %; MPV 9.9 fl. (7.2-11.1); NUCLEATED RBCS 0 /100WBC; PLATELET COUNT* 236 thou/uL (150-400); POLYS 75.9 %; RBC 5.06 mil/uL (4.20-5.00); RDW-CV 13.7 % (10.5-14.5); WBC 7.4 thou/uL (4.0-11.0)
[2021-10-15 11:11] LABS: CALCIUM 8.8 mg/dL (8.5-10.1); CREATININE 0.6 mg/dL (0.6-1.3); POTASSIUM 3.2 mmol/L (3.5-5.1)
[2021-10-15 11:22] LABS: ALBUMIN 3.5 g/dL (3.4-5.0); TOTAL BILIRUBIN 0.5 mg/dL (<0.1-1.0); TOTAL PROTEIN 7.1 g/dL (6.4-8.2)
[2021-10-15 11:53] VITALS: BP 123/77
--- NOTE | 2021-10-15 13:13 | EKG ---
[place] [address] ELECTROCARDIOGRAM REPORT Name: MICHELLEKYA Room: [facility]#: [id number] Admission: 10/15/21 Attend Phys: Discharge: 10/15/21 Date of : 65 Date of Service: 10/15/21 1030 Report #: [id number] THIS REPORT FOR: //name// [facility] ED Test Date: 2021-10-15 Test Time: 10:30:29 Pat Name: KYA MARTINEZ Department: Room: Gender: Livestock Dealer: : 1965 Requested By: Jose Luis Bishop Order Number: [id number] MD: John Sun Measurements Intervals [place] Rate: 76 P: 60 MD: 165 QRS: 48 QRSD: 107 T: 17 QT: 422 QTc: 475 Interpretive Statements Sinus rhythm Low voltage, extremity and precordial leads Compared to ECG 05/03/2021 11:29:11 Poor R-wave progression no longer present Electronically Signed On 10-15-2021 13:13:06 JOB SITE SUPERVISOR by John Sun [email or web address] <ELECTRONICALLY SIGNED> By: John Sun MD, FACC 10/15/21 1313 1030 1030 John Sun MD, [facility] /EPI
== END 2021-10-15 11:56 | disposition home or self-care (01) ==
LOC: M.ERS 10:23
PROVIDERS: Family Medicine
DX: R07.89 Other chest pain (principal); R42 Dizziness and giddiness; R55 Syncope and collapse; I48.91 Unspecified atrial fibrillation; I10 Essential (primary) hypertension; F32.9 Major depressive disorder, single episode, unspecified; G43.909 Migraine, unspecified, not intractable, without status migrainosus; L40.9 Psoriasis, unspecified; E03.9 Hypothyroidism, unspecified; F17.210 Nicotine dependence, cigarettes, uncomplicated; Z90.49 Acquired absence of other specified parts of digestive tract; Z98.51 Tubal ligation status; Z98.84 Bariatric surgery status; Z79.899 Other long term (current) drug therapy; Z88.2 Allergy status to sulfonamides

== ENCOUNTER 2021-10-29 13:06 | Emergency (ER) | payer OTHER ==
[~2021-10-29] VITALS: Ht 160 cm; Wt 78.0 kg
[~2021-10-29 13:06] MED LIST changes: +LISINOPRIL20 MG PO; +PRENATAL PO
[2021-10-29 13:35] LABS: URINE BILIRUBIN NEGATIVE (Negative); URINE BLOOD NEGATIVE (Negative); URINE CLARITY CLEAR; URINE COLOR YELLOW; URINE GLUCOSE-RANDOM NEGATIVE (Negative); URINE KETONES NEGATIVE (Negative); URINE LEUKOCYTES NEGATIVE (Negative); URINE NITRITE NEGATIVE (Negative); URINE PROTEIN NEGATIVE (Negative); URINE UROBILINOGEN 0.2 E.U./dl (0.2-1.0)
[2021-10-29] MEDS ORDERED: HYDROCODON-ACE1 EAC7 PO (13:48)
[2021-10-29] MEDS ORDERED: FLEXERIL PO (13:51)
[2021-10-29 13:58] VITALS: BP 134/70
== END 2021-10-29 13:59 | disposition home or self-care (01) ==
LOC: M.ERS 13:06
PROVIDERS: Physician Assistant
DX: S29.012A Strain of muscle and tendon of back wall of thorax, initial encounter (principal); I48.91 Unspecified atrial fibrillation; I10 Essential (primary) hypertension; E03.9 Hypothyroidism, unspecified; L40.9 Psoriasis, unspecified; G43.909 Migraine, unspecified, not intractable, without status migrainosus; F17.210 Nicotine dependence, cigarettes, uncomplicated; Z98.890 Other specified postprocedural states; Z90.49 Acquired absence of other specified parts of digestive tract; Z98.51 Tubal ligation status; Z98.84 Bariatric surgery status; Z79.899 Other long term (current) drug therapy; Z88.2 Allergy status to sulfonamides; X50.0XXA Overexertion from strenuous movement or load, initial encounter; Y93.89 Activity, other specified; Y92.89 Other specified places as the place of occurrence of the external cause; Y99.0 Civilian activity done for income or pay